=== PATIENT | female | born 1985 | race Caucasian/White ===

== ENCOUNTER 2019-04-01 15:42 | Outpatient (CLI) | payer OTHER, SELFPAY ==
[2019-04-01 16:51] LABS: Alanine Aminotransferase 14 U/L (4-35); Aspartate Amino Transferase 25 U/L (14-36)
== END 2019-04-01 15:43 | disposition home or self-care (01) ==
LOC: ANHLAB 15:48
PROVIDERS: PCP Internal Medicine; Visit Provider Podiatrist Foot & Ankle Surgery
DX: B35.1 Tinea unguium (principal)
CPT/HCPCS: 36415; 84450; 84460

== ENCOUNTER 2019-07-03 07:22 | Outpatient (CLI) | payer OTHER, SELFPAY ==
[2019-07-03 07:55] LABS: Alanine Aminotransferase 13 U/L (4-35); Aspartate Amino Transferase 28 U/L (14-36)
== END 2019-07-03 07:23 | disposition home or self-care (01) ==
PROVIDERS: PCP Internal Medicine; Visit Provider Podiatrist Foot & Ankle Surgery
DX: B35.1 Tinea unguium (principal)
CPT/HCPCS: 36415; 84450; 84460

== ENCOUNTER 2019-10-23 16:03 | Outpatient (CLI) | payer OTHER, SELFPAY ==
[2019-10-23 16:44] LABS: Alanine Aminotransferase 12 U/L (4-35); Aspartate Amino Transferase 25 U/L (14-36)
== END 2019-10-23 16:04 | disposition home or self-care (01) ==
LOC: ANHLAB 16:04
PROVIDERS: Visit Provider Podiatrist Foot & Ankle Surgery
DX: B35.1 Tinea unguium (principal)
CPT/HCPCS: 36415; 84450; 84460

== ENCOUNTER 2020-02-10 16:56 | Outpatient (CLI) | payer OTHER, SELFPAY ==
[2020-02-10 17:52] LABS: Alanine Aminotransferase 12 U/L (4-35); Aspartate Amino Transferase 25 U/L (14-36)
== END 2020-02-10 16:57 | disposition home or self-care (01) ==
LOC: ANHLAB 16:57
PROVIDERS: PCP Physician Assistant; Visit Provider Podiatrist Foot & Ankle Surgery
DX: B35.1 Tinea unguium (principal)
CPT/HCPCS: 36415; 84450; 84460

== ENCOUNTER 2020-02-23 03:56 | Outpatient (CLI) | payer OTHER, SELFPAY ==
[2020-02-23 16:31] LABS: SARS-CoV-2 RNA PCR Negative
== END 2020-02-23 03:57 | disposition home or self-care (01) ==
LOC: ANHCOVIDDT 03:56
PROVIDERS: PCP Physician Assistant; Visit Provider Obstetrics & Gynecology
DX: Z01.812 Encounter for preprocedural laboratory examination (principal); Z20.822 Contact with and (suspected) exposure to COVID-19
CPT/HCPCS: C9803; U0003; U0005

== ENCOUNTER 2020-02-24 13:59 | Outpatient (CLI) | payer OTHER, SELFPAY ==
[2020-02-24 15:02] LABS: Hematocrit 33.4 % (37.0-47.0); Hemoglobin 10.8 g/dL (12.0-15.0)
== END 2020-02-24 14:00 | disposition home or self-care (01) ==
PROVIDERS: PCP Physician Assistant; Visit Provider Anesthesiology
DX: Z01.818 Encounter for other preprocedural examination (principal)
CPT/HCPCS: 36415; 85014; 85018

== ENCOUNTER 2020-02-26 10:12 | Day surgery (SDC) | payer OTHER, SELFPAY ==
[2020-02-20 09:37] VITALS: BMI 28.6
--- NOTE | 2020-02-25 23:11 | PM.IMHP ---
H&P: HPI History of Present Illness Date/Time: 02/25/20 23:11 Chief Complaint: Bleeding Narrative: 34 y/o who continues to have irregular bleeding. She had months of nearly daily bleeding with Mirena. We removed the Mirena and her bleeding improved with Nuvaring, but she had a hard time keeping the ring in place. We placed a Nexplanon on 01/08/20, but she has had nearly daily bleeding with this as well. Ultrasound exam demonstrates an anteverted uterus with an endometrial complex measuring 5.5mm thick. Follicular change is noted in the adnexa. 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 One vaginal delivery of twin boys weighing 7#5oz and 6#14oz. Meds Home Medications and Allergies Home Medications Medication Instructions Recorded Confirmed Type montelukast 10 mg tablet 10 mg PO DAILY #90 tablet 08/12/19 02/20/20 Rx etonogestrel [Nexplanon] 1 implant SUBDERMAL ONCE 02/20/20 02/20/20 History Allergies Allergy/AdvReac Type Severity Reaction Status Date / Time No Known Allergies Allergy Verified 02/20/20 09:27 Exam Const: Orientation/consciousness: patient oriented x3 Other: Well-developed, well-nourished female in no acute distress. Neck: Thyroid: thyroid normal Lymphatic: no lymphadenopathy noted (in neck, axilla or inguinal nodes) Resp: Effort & Inspection: normal respiratory effort Auscultation: clear to auscultation bilaterally Cardio: Rate: regular rate Rhythm: regular rhythm Heart sounds: S1 normal heart sound present and S2 normal heart sound present GI: Other: ABD: Soft, nontender, nondistended. No guarding or rebound tenderness. No hepatosplenomegaly. : General: Yes no CVA tenderness Other: External genitalia: normal female hair distribution, without lesion. Urethral meatus: no lesion, non prolapsed. Bladder: no mass, nontender Vagina: well-estrogenized, without lesion or discharge. No cystocele or rectocele. Cervix: no lesion or discharge. Uterus: small, anteverted, freely mobile, nontender Adnexa: no mass or tenderness. Anus/perineum: no lesions, nontender Back/Spine/Pelvis: Back: no CVA tenderness Skin: General skin exam: normal color and no rashes or lesions noted Other: The Nexplanon giuseppe is easily palpated in the expected location in the skin of the left arm. Neuro: General: patient oriented x3 Extrem: Other: Extremities: nontender with no edema Psych: Mental Status: mental status grossly normal Affect: normal affect Assessment and Plan Assessment and plan (1) Menometrorrhagia: Code(s): N92.1 - Excessive and frequent menstruation with irregular cycle Status: Acute Assessment and Plan: I have offered her continued observation vs. medical treatment vs. surgical management. She prefers the latter. Specifically, I have offered her a hysteroscopy with dilation and sharp curettage. She understands risks of surgery to include risks of anesthesia, risks of pain, infection, bleeding, blood products, thromboembolic phenomena and damage to adjacent structures such as bowel, bladder, ureters, blood vessels and nerves. She understands all these risks and elects to proceed with surgery.
[2020-02-26 10:40] VITALS: BP 115/77; PULSE 81; RESP 16; TEMP 37; O2SAT 98; BMI 31.1
[2020-02-26] MEDS: ACETAMINOPHEN 500 MG TABLET 1000 MG PO (10:55)
--- NOTE | 2020-02-26 11:53 | WPDANESEPPF ---
Anes - Initial Pre Proc Eval Procedure: Operation Date: 02/26/20 12:00 Proposed Procedures p Hysteroscopy Dilation and Curettage - Cory Riley MD Date/Time: 02/26/20 11:53 Surgeon: Cory Riley MD Pre Op Diagnosis: IRREGULAR BLEEDING Patient Data Age: 34 Gender: F Height: 5 ft 9 in Weight: 95.5 kg Last Vital Signs Temp 37.0 C 02/26/20 10:40 Pulse 81 02/26/20 10:40 Resp 16 02/26/20 10:40 BP 115/77 02/26/20 10:40 Pulse Ox 98 02/26/20 10:40 Allergies Allergy/AdvReac Type Severity Reaction Status Date / Time No Known Allergies Allergy Verified 02/26/20 10:45 Home Medications Medication Instructions Recorded Confirmed Type montelukast 10 mg tablet 10 mg PO DAILY #90 tablet 08/12/19 02/26/20 Rx etonogestrel [Nexplanon] 1 implant SUBDERMAL ONCE 02/20/20 02/26/20 History Patient hx anesthesia problems: other (history of restless/combative emergence) Family hx anesthesia problems: none [facility] Past Medical History Medical History (Updated 02/26/20 @ 11:54 by Pj Senior MD) Overweight Surgical History Surgical History (Updated 02/26/20 @ 11:54 by Pj Senior MD) H/O arthroscopic knee surgery History of ankle surgery Family History Family History Mother Hypertension Father Patient's father is in good health Sibling Patient's sister is in good health Patient's brother is in good health Social History Social History Smoking status: Never smoker Second hand tobacco smoke exposure: No Alcohol intake: never Substance use: never Substance use type: does not use Living arrangements: with family Gender identity (if verbalized by the patient): Female Spiritual care concerns: No Anes - Eval Final PreProcedure Day of Procedure 02/26/20 11:53 Patient weight: overweight Heart: regular rate and rhythm Lungs: clear to auscultation Airway: Mallampati scale class 1 Neurological: alert and oriented Last oral intake: >/= 8 hours ASA classification: II Emergent: no Anesthetic plan: proceed Anesthesia type and monitoring: general LMA and standard monitoring Other findings: labs reviewd today including recent H&H and liver enzymes Informed Consent: The patient's anesthetic plan of GA with LMA and its attendant risks and benefits were discussed with the patient. Questions were solicited and answers provided to the satisfaction of the patient.She agrees to proceed.
[2020-02-26] MEDS: LACTATED RINGERS 1,000 ML 30 ML IV CONT ×2 (11:59→13:00)
--- NOTE | 2020-02-26 12:04 | WPDHPUPDATE1 ---
History and Physical Update Update Date/Time: 02/26/20 12:04 History and Physical has been reviewed, including an updated exam of the patient. There are NO changes in the patient's condition. Risks, benefits, and alternatives have been discussed and questions answered. Patient agrees to proceed with procedure.
[2020-02-26 12:44] VITALS: BP 116/71; PULSE 82; RESP 14; TEMP 36.3; O2SAT 98
--- NOTE | 2020-02-26 12:44 | PM.PROC ---
Procedure Note - Detailed Date of procedure: 02/26/20 Pre-op diagnosis: IRREGULAR BLEEDING Menometrorrhagia Post-op diagnosis: same Procedure performed: Hysteroscopy Dilation and sharp curettage Description of procedure: The patient was taken to the operating room where she was prepared and draped in the usual sterile fashion in the dorsal lithotomy position. The bladder was drained with a red rubber catheter. A sterile speculum was placed into the vagina. The anterior lip of the cervix was grasped with single-tooth tenaculum. Ten mL of 1% lidocaine was administered in a paracervical block. The cervix was then gently dilated using Hegar dilators until an 8 mm dilator could be passed. Hysteroscopy was performed using sterile saline as a distention medium. Findings are as noted above. Sharp curettage was then performed, and endometrial curettings were collected on a Telfa pad and passed off to be sent to pathology. Hemostasis was excellent. Sponge, lap, needle and instrument counts were correct. The patient was awakened and taken to the recovery room in stable condition. I was present and scrubbed through the entire procedure. Implants: None Anesthesia: GLMA and local (1% lidocaine paracervical block) Surgeon: Cory Riley MD Estimated blood loss (mL): 10 Drains: No Packing: No Pathology: yes (endometrial curettings) Complications: None Condition: stable Disposition: PACU Findings: Unremarkable endometrial cavity. Both tubal ostia seen.
[2020-02-26 12:55] VITALS: BP 115/69; PULSE 82; RESP 16; O2SAT 100
[2020-02-26 13:10] VITALS: BP 108/82; PULSE 60; RESP 16; O2SAT 100
[2020-02-26 13:20] VITALS: BP 111/87; PULSE 69; RESP 16; O2SAT 100
--- NOTE | 2020-02-26 13:26 | WPDANESPN ---
Anes - Prog Note Post-Op Date/Time: 02/26/20 13:26 Cardiovascular status: normal Airway patency: baseline Post-Op hydration status: normal Vital Signs: Last Vital Signs Temp 36.3 C L 02/26/20 12:44 Pulse 60 02/26/20 13:10 Resp 16 02/26/20 13:10 BP 108/82 02/26/20 13:10 Pulse Ox 100 02/26/20 13:10 Pain Score (VAS): 0/10 Post-procedural complaints: none Patient Feedback: Patient satisfied with anesthetic care. She denies any pain or nausea. VVS. Tolerating PO. Stable for discharge from facility.
[2020-02-26 13:48] VITALS: BP 109/70; PULSE 73; RESP 16; O2SAT 100
== END 2020-02-26 13:55 | disposition home or self-care (01) ==
PROVIDERS: PCP Physician Assistant; Visit Provider Obstetrics & Gynecology
PROC: 0U5B8ZZ Destruction of Endometrium, Via Natural or Artificial Opening Endoscopic (ICD-10-PCS; CPT 58563; principal; 2020-02-26 12:00)
DX: N93.8 Other specified abnormal uterine and vaginal bleeding (principal)
CPT/HCPCS: 58558

== ENCOUNTER 2020-02-26 10:12 | Outpatient (NON) | payer OTHER, SELFPAY | END 2020-02-26 10:13 | LOC: ANHLAB 02-27 08:51 | PROVIDERS: PCP Physician Assistant; Visit Provider Obstetrics & Gynecology | DX: N93.9 Abnormal uterine and vaginal bleeding, unspecified (principal) | CPT/HCPCS: 88305 ==

== ENCOUNTER 2020-08-31 15:27 | Outpatient (CLI) | payer OTHER, SELFPAY ==
--- NOTE | ~2020-08-31 | XR_ITS ---
XR finger 1st RT min 2V 08/31/2020 15:53 INDICATION: Right first finger pain and swelling PROCEDURE: 3 views right first finger COMPARISON: No prior studies for comparison. FINDINGS: Fracture, dislocation or subluxation is not identified. 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 The soft tissues appear within normal limits. No foreign bodies are identified. IMPRESSION: 1: NO ACUTE BONE OR JOINT ABNORMALITY IDENTIFIED. Reviewed, dictated and finalized at location A.
[2020-08-31 16:19] LABS: Uric Acid 3.7 mg/dL (2.5-7.5)
[2020-08-31 16:40] LABS: Erythrocyte Sedimentation Rate 25 mm/hr (0-20)
== END 2020-08-31 15:28 | disposition home or self-care (01) ==
LOC: ANHLAB 15:28
PROVIDERS: PCP Physician Assistant; Visit Provider Physician Assistant
DX: M79.644 Pain in right finger(s) (principal); M18.11 Unilateral primary osteoarthritis of first carpometacarpal joint, right hand
CPT/HCPCS: 36415; 73140; 84550; 85652

== ENCOUNTER 2020-09-09 09:57 | Outpatient (CLI) | payer OTHER, SELFPAY ==
[2020-09-09 10:33] LABS: Alanine Aminotransferase 15 U/L (4-35); Aspartate Amino Transferase 19 U/L (14-36)
== END 2020-09-09 09:58 | disposition home or self-care (01) ==
LOC: ANHLAB 09:59
PROVIDERS: PCP Physician Assistant; Visit Provider Podiatrist Foot & Ankle Surgery
DX: B35.1 Tinea unguium (principal)
CPT/HCPCS: 36415; 84450; 84460

== ENCOUNTER 2020-11-11 10:57 | Outpatient (RCR) | payer OTHER, SELFPAY ==
[2020-11-11] MEDS: ACETAMINOPHEN 325 MG TABLET 650 MG PO (11:04)
[2020-11-11] MEDS: FAMOTIDINE 20 MG TABLET PO (11:05)
[2020-11-11] MEDS: diphenhydrAMINE HCl CAP 25 MG CAPSULE PO (11:05)
[2020-11-11 11:17] VITALS: BP 126/82; PULSE 85; RESP 20; TEMP 36.8; O2SAT 99
[2020-11-11 12:34] VITALS: BP 115/72
== END 2020-11-11 16:30 | disposition home or self-care (01) ==
LOC: AMCINF 10:57
PROVIDERS: Visit Provider Internal Medicine Hematology & Oncology
DX: Z23 Encounter for immunization (principal); U07.1 COVID-19
CPT/HCPCS: A9270; J7050; M0243

== ENCOUNTER 2021-01-22 12:02 | Outpatient (CLI) | payer BC, SELFPAY ==
[2021-01-22 12:40] LABS: Hematocrit 35.9 % (37.0-47.0); Hemoglobin 11.7 g/dL (12.0-15.0); Mean Corpuscular HGB Conc 32.6 g/dl (32-36); Mean Corpuscular Hemoglobin 28.7 pg (26-34); Mean Corpuscular Volume 88.2 fl (80-100); Mean Platelet Volume 10.6 fl (7.4-10.4); Platelet Count Result 191 k/mm3 (150-375); Red Blood Count 4.07 M/mm3 (4.2-5.4); Red Cell Distribution Width 12.6 % (11.5-14.5); White Blood Count 5.6 K/mm3 (4.5-10.0)
[2021-01-22 12:46] LABS: Alanine Aminotransferase 18 U/L (4-35); Albumin Level 4.5 g/dL (3.5-5.1); Alkaline Phosphatase 53 U/L (38-126); Anion Gap 7 mmol/L (8-16); Aspartate Amino Transferase 28 U/L (14-36); Bilirubin,Total 0.3 mg/dL (0.2-1.3); Blood Urea Nitrogen 13 mg/dL (7-17); Carbon Dioxide 26 mmol/L (22-30); Chloride 103 mmol/L (98-107); Cholesterol 169 mg/dL (0-200); Estimated Glomerular Filt Rate > 60; Glucose 92 mg/dL (65-110); HDL Direct 71 mg/dL; Potassium 4.1 mmol/L (3.4-5.0); Sodium 136 mmol/L (137-145); Triglycerides 52 mg/dL (<150)
[2021-01-22 12:57] LABS: LDL Cholesterol Direct 79 mg/dL
== END 2021-01-22 12:03 | disposition home or self-care (01) ==
PROVIDERS: PCP Internal Medicine; Referring Provider Podiatrist Foot & Ankle Surgery; Visit Provider Physician Assistant
DX: Z00.00 Encounter for general adult medical examination without abnormal findings (principal); B35.1 Tinea unguium
CPT/HCPCS: 36415; 80053; 80061; 82607; 82746; 84443; 85027

== ENCOUNTER 2021-04-27 16:44 | Outpatient (CLI) | payer BC, SELFPAY ==
[2021-04-27 17:36] LABS: Alanine Aminotransferase 15 U/L (4-35); Aspartate Amino Transferase 28 U/L (14-36)
== END 2021-04-27 16:45 | disposition home or self-care (01) ==
LOC: ANHLAB 16:47
PROVIDERS: PCP Internal Medicine; Visit Provider Podiatrist Foot & Ankle Surgery
DX: B35.1 Tinea unguium (principal)
CPT/HCPCS: 36415; 84450; 84460

== ENCOUNTER 2021-09-20 16:38 | Outpatient (CLI) | payer BC, SELFPAY ==
[2021-09-20 16:58] LABS: Basophils Percent Auto 0.2 % (0.2-1.2); Eosinophils Absolute Auto 0.1 K/mm3 (0-0.3); Eosinophils Percent Auto 1.3 % (0-4.4); Hematocrit 29.5 % (37.0-47.0); Immature Granulocyte Absolute 0.01 K/mm3 (0.00-0.031); Immature Granulocyte Percent A 0.2 % (0-0.5); Lymphocytes Absolute Auto 1.25 K/mm3 (0.9-3.2); Lymphocytes Percent Auto 27.9 % (18.3-44.2); Mean Corpuscular HGB Conc 30.5 g/dl (32-36); Mean Corpuscular Hemoglobin 24.1 pg (26-34); Mean Corpuscular Volume 78.9 fl (80-100); Mean Platelet Volume 9.9 fl (7.4-10.4); Monocytes Absolute Auto 0.4 K/mm3 (0.1-0.6); Monocytes Percent Auto 9.2 % (2.6-8.5); Neutrophils Absolute Auto 2.7 K/mm3 (1.3-6.7); Neutrophils Percent Auto 61.2 % (45.5-73.1); Platelet Count Result 230 k/mm3 (150-375); Red Blood Count 3.74 M/mm3 (4.2-5.4); White Blood Count 4.5 K/mm3 (4.5-10.0)
== END 2021-09-20 16:39 | disposition home or self-care (01) ==
LOC: ANHLAB 16:41
PROVIDERS: PCP Family Medicine; Visit Provider Obstetrics & Gynecology
DX: R55 Syncope and collapse (principal); N92.0 Excessive and frequent menstruation with regular cycle
CPT/HCPCS: 36415; 85025

== ENCOUNTER 2021-11-22 17:19 | Outpatient (CLI) | payer BC, SELFPAY ==
[2021-11-22 17:36] LABS: Hematocrit 35.9 % (37.0-47.0); Hemoglobin 11.5 g/dL (12.0-15.0)
== END 2021-11-22 17:20 | disposition home or self-care (01) ==
LOC: ANHLAB 17:21
PROVIDERS: PCP Family Medicine; Visit Provider Obstetrics & Gynecology
DX: N92.0 Excessive and frequent menstruation with regular cycle (principal)
CPT/HCPCS: 36415; 85014; 85018

== ENCOUNTER 2023-04-25 03:07 | Day surgery (SDC) | payer BC, SELFPAY ==
[2023-04-19 10:18] VITALS: BMI 26.6
--- NOTE | 2023-04-19 10:24 | PC.NURSE ---
Report to the Outpatient Waiting Room, entrance under the green pavilion located off [facility], at time 1000__ on date _04/25/23_. Planned Procedure Time: _1200__. Time changes happen often and if your time is changed the preop area will call you the afternoon before. - You and your visitor will be asked to self-screen and do not enter if you have any COVID symptoms. - A mask is optional within the hospital at this time. Patients may have clear liquids (water, carbonated beverages, clear teas, apple juice) until 3 hours prior to surgery with a maximum of 20 ounces. - No food from midnight until time of surgery - Infants may have breast milk until 4 hours before surgery, formula 6 hours prior to surgery. - Children will be allowed to drink immediately following surgery. If applicable, please bring a bottle or sippy cup to assist with drinking. Juice, water, soda, and popsicles are readily available. For infants on formula, please bring formula the day of surgery. Pacifiers are allowed. Take the following medications with a SIP of water the morning of surgery: NONE DO NOT STOP ANY OF YOUR OTHER PRESCRIPTION MEDICATIONS PRIOR TO SURGERY ?EXCEPT THE FOLLOWING Medications to discontinue per physician NONE Date to take last dose Please no make-up, nail kinyarwanda, hairspray, perfume, deodorant, or body powder the day of surgery. No jewelry (including any body piercings) or valuables the day of surgery, leave them at home. Please take a shower or bath the night before, or the morning of, surgery with an antibacterial soap. Wear comfortable, loose fitting clothing. Children are encouraged to wear pajamas. - Jewelry must be removed prior to entering the operating room. Rings and piercings that are not removed may be cut off. - The hospital will not accept responsibility for valuables. - Please leave all valuables, including medications, at home the day of surgery. If you are going home after surgery, a licensed carrier driver must drive you home. - NO public transportation without another adult if you receive anesthesia. - We recommend that an adult stay with you for 24 hours following discharge. - We also recommend that you do not drive, make important decision, drink alcoholic beverages, or take any drugs that were not prescribed by your health care provider for at least 24 hours after your discharge time. For Pediatric surgeries, we recommend two adults accompany the child home. Follow any additional instructions given to you from your surgeon. If you or anyone in your household have experienced Covid symptoms in the past week, please notify your surgeon or the nurse liaison at the phone number below for possible testing. Telephone instructions given to __PATIENT _and asked if any additional questions and then verbalized understanding. Patient advised to call surgeon office or pre surgery nurse liaison [phone] if any additional questions.
[2023-04-25] VITALS (8 sets, daily range): BP systolic 114–120; BP diastolic 61–82; PULSE 56–80; RESP 12–20; TEMP 36.1–36.3; O2SAT 100
[2023-04-25] MEDS: ACETAMINOPHEN 500 MG TABLET 1000 MG PO (10:15)
[2023-04-25] MEDS: LACTATED RINGERS 1,000 ML 30 ML IV CONT ×2 (10:35→13:05)
[2023-04-25] MEDS: KETOROLAC 15 MG/ML VIAL (*BKC) IV PUSH (10:40)
[2023-04-25] MEDS: SCOPOLAMINE 1 MG PATCH 1 PATCH TRANSDERM (10:49)
--- NOTE | 2023-04-25 10:56 | P.PNAN_ITS ---
Anes - Initial Pre Proc Eval Procedure: Operation Date: 04/25/23 12:00 Proposed Procedures p Laparoscopic Bilateral Tubal Ligation with Fallopian Rings, Removal of Nexplanon Implant - Cory Riley MD Date/Time: 04/25/23 10:56 Surgeon: Cory Riley MD Pre Op Diagnosis: Desire Sterilization Patient Data Age: 38 Gender: F Height: 1.75 m Weight: 82 kg Allergies Allergy/AdvReac Type Severity Reaction Status Date / Time No Known Allergies Allergy Verified 06/13/21 14:57 Home Medications Medication Instructions Recorded Confirmed Type liraglutide (weight loss) 3 mg/0.5 9.5 mg subcut DAILY 04/19/23 04/25/23 History mL (18 mg/3 mL) subcut pen injector (Saxenda) Patient hx anesthesia problems: none Family hx anesthesia problems: none Results Review: All pre-operative results and documents have been reviewed as part of the pre- operative evaluation. PMFSH Past Medical History Medical History Overweight Surgical History Surgical History H/O arthroscopic knee surgery History of ankle surgery Family History Family History Mother Hypertension Father Patient's father is in good health Sibling Patient's sister is in good health Patient's brother is in good health Social History Social History Smoking status: Never smoker Second hand tobacco smoke exposure: No Alcohol intake: former Substance use: never Substance use type: does not use Living arrangements: with family Gender identity (if verbalized by the patient): Female Spiritual care concerns: No Anes - Eval Final PreProcedure Day of Procedure 04/25/23 10:56 Patient weight: overweight Heart: regular rate and rhythm Lungs: clear to auscultation Airway: Mallampati scale class II Neurological: alert and oriented Last oral intake: >/= 8 hours ASA classification: II Emergent: no Anesthetic plan: proceed Anesthesia type and monitoring: general ETT and standard monitoring Results Review: All pre-operative results and documents have been reviewed as part of the pre- operative evaluation. Informed Consent: The patient's anesthetic plan and its attendant risks and benefits were discussed with the patient/family/POA. Questions were solicited and answers provided to the satisfaction of the patient/family/POA.
--- NOTE | 2023-04-25 11:54 | PM.IMHP ---
H&P: HPI History of Present Illness Date/Time: 04/25/23 11:54 Chief Complaint: Here for tubal ligation Narrative: 38 y/o who has had an endometrial ablation. She has a Nexplanon in place, but has irregular bleeding. She would like to have the Nexplanon removed and have permanent contraception with laparoscopic bilateral tubal ligation. Review of Systems Review of Systems: All systems reviewed & are unremarkable except as noted in HPI and below PMFSH Past Medical History Medical History (Updated 04/25/23 @ 11:57 by Cory Riley MD) Overweight Surgical History Surgical History H/O arthroscopic knee surgery History of ankle surgery History of endometrial ablation Family History Family History Mother Hypertension Father Patient's father is in good health Sibling Patient's sister is in good health Patient's brother is in good health Social History Social History Smoking status: Never smoker Second hand tobacco smoke exposure: No Alcohol intake: former Substance use: never Substance use type: does not use Living arrangements: with family Gender identity (if verbalized by the patient): Female Spiritual care concerns: No Meds Home Medications and Allergies Home Medications Medication Instructions Recorded Confirmed Type liraglutide (weight loss) 3 mg/0.5 9.5 mg subcut DAILY 04/19/23 04/25/23 History mL (18 mg/3 mL) subcut pen injector (Saxenda) Allergies Allergy/AdvReac Type Severity Reaction Status Date / Time No Known Allergies Allergy Verified 06/13/21 14:57 Vital Signs Vital Signs - 24 hr 04/25/23 10:10 Temperature 36.3 C L Pulse Rate 60 Respiratory Rate 20 Blood Pressure 117/61 Pulse Oximetry 100 Oxygen Delivery Room Air Exam Const: Orientation/consciousness: patient oriented x3 Other: Well-developed, well-nourished female in no acute distress. Neck: Thyroid: thyroid normal Lymphatic: no lymphadenopathy noted (in neck, axilla or inguinal nodes) Resp: Effort & Inspection: normal respiratory effort Auscultation: clear to auscultation bilaterally Cardio: Rate: regular rate Rhythm: regular rhythm Heart sounds: S1 normal heart sound present and S2 normal heart sound present GI: Other: ABD: Soft, nontender, nondistended. No guarding or rebound tenderness. No hepatosplenomegaly. : General: Yes no CVA tenderness Other: External genitalia: normal female hair distribution, without lesion. Urethral meatus: no lesion, non prolapsed. Bladder: no mass, nontender Vagina: well-estrogenized, without lesion or discharge. No cystocele or rectocele. Cervix: no lesion or discharge. Uterus: small, anteverted, freely mobile, nontender Adnexa: no mass or tenderness. Anus/perineum: no lesions, nontender Back/Spine/Pelvis: Back: no CVA tenderness Skin: General skin exam: normal color and no rashes or lesions noted Neuro: General: patient oriented x3 Extrem: Other: Extremities: nontender with no edema Psych: Mental Status: mental status grossly normal Affect: normal affect Assessment and Plan Assessment and plan (1) Unwanted fertility: Code(s): Z30.09 - Encounter for other general counseling and advice on contraception Status: Acute Assessment and Plan: A: Desired sterility. P: She understands there are temporary methods of contraception available to her. She understands that there are nonsurgical options as well as surgical options. She understands that tubal ligation will render her permanently sterile. She understands that there is a failure rate associated with tubal ligation, as well as an inherent ectopic gestation risk. Furthermore, she understands risks of surgery to include risks of anesthesia, risks of pain, infect
--- NOTE | 2023-04-25 12:09 | WPDHPUPDATE1 ---
History and Physical Update Update Date/Time: 04/25/23 12:09 History and Physical has been reviewed, including an updated exam of the patient. There are NO changes in the patient's condition. Risks, benefits, and alternatives have been discussed and questions answered. Patient agrees to proceed with procedure.
[2023-04-25] MEDS: LIDOCAINE HCL 1% LOCAL INJ 20 ML VIAL 10 ML INFILTRATE (12:18)
--- NOTE | 2023-04-25 13:05 | P.OP_ITS ---
Procedure Note - Detailed Date of Procedure 04/25/23 Pre-op Diagnosis Desired Sterilization Post-op Diagnosis Same Procedure Performed Laparoscopic bilateral tubal ligation with Falope rings Removal of Nexplanon giuseppe Surgeon Cory Riley MD Anesthesia General and Local (1% lidocaine) Findings Liver and gallbladder unremarkable. Vermiform appendix surgically absent. Uterus, anterior and posterior cul de sac, bilateral Fallopian tubes / ovaries, bilateral round ligaments all unremarkable. The Nexplanon giuseppe was easily palpated in the expected location in the left arm. Description of Procedure The patient was taken to the operating room where general endotracheal anesthesia was administered. She was prepared and draped in the usual sterile fashion in dorsal lithotomy position. The bladder was drained with a red rubber catheter. A sterile speculum was placed into the vagina. The anterior lip of the cervix was grasped with a single-tooth tenaculum. The acorn uterine manipulator was placed. The speculum was withdrawn. Gloves were changed and attention was turned the abdomen. An infraumbilical skin incision was made with a scalpel. The abdomen was tented and a 5mm bladeless trocar was advanced under direct laparoscopic visualization. Pneumoperitoneum was administered using carbon dioxide gas. A survey of the pelvis and abdomen revealed the findings noted above. A second skin incision was made in the midline above the symphysis pubis and an 8mm bladeless trocar was advanced under direct laparoscopic visualization. The fallopian tube on the right side was followed out to the fimbriated end for identification. It was then grasped in the midportion with the Falope ring applicator. The Falope ring was tented applied. A good loop of tube was noted to be distal to the ring. Hemostasis was excellent. The device was reloaded and the contralateral tube was similarly identified and ligated. An excellent application was noted here as well. A total of 3mL of 1% lidocaine was infiltrated into the serosa of the proximal tubes for postoperative anesthesia. The ports were withdrawn. The gas was allowed to escape. The skin incisions were reapproximated using interrupted subcuticular sutures of 4 0 Vicryl. Dermaflex was applied externally. Attention was directed to the left arm, which was prepped and draped. The skin was infiltrated with 1 mL 1% lidocaine and a stab incision made with a #11 scalpel. A curved hemostat was used to grasp the Nexplanon giuseppe. It was easily removed, intact, and discarded. Steri strips and a pressure dressing were applied. The vaginal instrumentation was withdrawn and hemostasis was excellent here as well. Sponge, lap, needle and instrument counts were correct. The patient was awakened and taken to recovery room in stable condition. I was present and scrubbed through the ent lin procedure. Implants Falope rings x 2 Estimated Blood Loss 5 Drains No Packing No Pathology None sent Complications None Condition Stable Disposition PACU
[2023-04-25] MEDS: fentaNYL CITRATE INJ (*CRX) 100 MCG/2 ML VIAL 25 MCG IV PUSH ×2 (13:33→13:36)
[2023-04-25] MEDS: oxyCODONE HCL (*CRX) 5 MG TAB IR PO (14:06)
== END 2023-04-25 14:40 | disposition home or self-care (01) ==
PROVIDERS: Visit Provider Obstetrics & Gynecology
PROC: (CPT 58671; principal; 2023-04-25 12:00)
DX: Z30.2 Encounter for sterilization (principal); Z30.46 Encounter for surveillance of implantable subdermal contraceptive
CPT/HCPCS: 11982; 58671; A4264; A9270; J1100; J1885; J2250; J2405; J2704; J3010; J7120

== ENCOUNTER 2023-09-11 16:10 | Outpatient (CLI) | payer BC, SELFPAY ==
--- NOTE | ~2023-09-11 | MM_ITS ---
EXAMINATION: MM screening vanessa BI w brice HISTORY: Screening TECHNIQUE: Craniocaudal and mediolateral oblique 3-D tomosynthesis images were obtained and synthetic 2-D images were generated. CAD analysis was submitted and interpreted. COMPARISON: No prior mammogram is available for comparison at this institution. BREAST PARENCHYMAL COMPOSITION: The breasts are heterogeneously dense, which may obscure small masses . FINDINGS: There is no evidence of suspicious mass, calcification, or architectural distortion to sugg est malignancy in either breast. There has been no suspicious interval change. IMPRESSION: 1. No mammographic evidence of malignancy. 2. Recommend routine screening mammography in one year. BI-RADS Category 1: Negative Reviewed, dictated and finalized at location B.
== END 2023-09-11 16:11 ==
PROVIDERS: PCP Obstetrics & Gynecology; Visit Provider Obstetrics & Gynecology
DX: Z12.31 Encounter for screening mammogram for malignant neoplasm of breast (principal)
CPT/HCPCS: 77063; 77067

== ENCOUNTER 2024-10-09 11:46 | Outpatient (CLI) | payer OTHER, SELFPAY ==
--- NOTE | ~2024-10-09 | MM_ITS ---
EXAMINATION: MM screening vanessa BI w brice HISTORY: Screening TECHNIQUE: Craniocaudal and mediolateral oblique 3-D tomosynthesis images were obtained and synthetic 2-D images were generated. CAD analysis was submitted and interpreted. COMPARISON: Mammogram 09/11/2023 BREAST PARENCHYMAL COMPOSITION: The breasts are extremely dense, which lowers the sensitivity of mammography. FINDINGS: There is no evidence of suspicious mass, calcification, or architectural distortion to suggest malignancy in either breast. Focal asymmetry in the central left breast posterior depth. IMPRESSION: 1. Focal asymmetry in the central left breast. The study is incomplete. A diagnostic left breast mammogram and a diagnostic left breast ultrasound is recommended. 2. No mammographic evidence for malignancy in the right breast. BI-RADS Category 0: Incomplete-needs additional imaging evaluation Reviewed, dictated and finalized at location Q. IMPRESSION: 1. Focal asymmetry in the central left breast. The study is incomplete. A diagn ostic left breast mammogram and a diagnostic left breast ultrasound is recommen ded. 2. No mammographic evidence for malignancy in the right breast. BI-RADS Category 0: Incomplete-needs additional imaging evaluation
--- OUTSIDE RECORDS SUMMARY | 2024-10-09 12:20 | XMS_ITS | Encounter Summary ---
Author Organization [facility] Address [address] [place] [address] Care Team Providers Care Psychiatric Social Worker Name Role Phone Donald Louis MD Unavailable [phone] Encounter Details Date Type Department Care Team (Late st Contact Info) Description 09/28/2014 Therapy Visit [facility] [address] [place] [address] Document, Scanned Social History Tobacco Use Types Packs/Day Years Used Date Smoking Tobacco: Never Smokeless Tobacco: Never Alcohol Use Standard Drinks/Week Comments Yes 0 (1 standard drink = 0.6 oz pur e alcohol) Comments No Sex and Gender Information Value Date Recorded Sex Assigned at Not on file 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
--- OUTSIDE RECORDS SUMMARY | 2024-10-09 12:20 | XMS_ITS | Encounter Summary ---
Author Organization [facility] Health Address [address] [place] [address] Care Team Providers Care Engraver Pantograph Name Role Phone Donald Louis MD Unavailable [phone] Encounter Details Date Type Department Care Team (Late st Contact Info) Description 08/11/2014 Therapy Visit [facility] REHAB [address] [place] [address] Unknown, Provider Social History Tobacco Use Types Packs/Day Years Used Date Smoking Tobacco: Never Smokeless Tobacco: Never Alcohol Use Standard Drinks/Week Comments Yes 0 (1 standard drink = 0.6 oz pur e alcohol) Comments No Sex and Gender Information Value Date Recorded Sex Assigned at Not on file Legal Sex Female 8:52 AM SOCIAL DIRECTOR Gender Identity Not on file Sexual Orientation Not on file 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
--- OUTSIDE RECORDS SUMMARY | 2024-10-09 12:20 | XMS_ITS | Encounter Summary ---
Author Organization [facility] Address [address] [facility] [place] [address] Care Team Providers Care Oil Expeller Operator Name Role Phone Donald Louis MD Unavailable [phone] Encounter Details Date Type Department Care Team (Late st Contact Info) Description 07/17/2013 [facility] Outpatient Visit [facility] Orthopedics - Radiology [address] [place] [address] Timothy Trujillo, DO [address] [place] [id number] Social History Tobacco Use Types Packs/Day Years Used Date Smoking Tobacco: Never Smokeless Tobacco: Never Alcohol Use Standard Drinks/Week Comments Yes 0 (1 standard drink = 0.6 oz pur e alcohol) Comments No Sex and Gender Information Value Date Recorded Sex Assigned at Not on file Legal Sex Female 8:52 AM RN DISCHARGE Gender Identity Not on file Sexual Orientation Not on file 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
--- OUTSIDE RECORDS SUMMARY | 2024-10-09 12:20 | XMS_ITS | Clinical Summary ---
Author Organization [facility] Address [address] [place] [address] Care Team Providers Care Snowsport Instructor Name Role Phone Donald Louis MD Unavailable [phone] Source Comments [facility],non-owned Affiliates and Associated Physician Practices is amultiple site organization consisting of ambulatory clinics and hospital sitesin [place], [place], [place] and [place]. This disclosure is being madepursuant to the Care Everywhere program and may not contain all information available regarding this patient. Last updated 17.[facility] Allergies No known active allergies Medications * Be aware that medications may not be up to date on this document. Alwaysverify current medications with the patient. cyclobenzaprine (FLEXERIL) 10 MG tablet Take 1 Tab by mouth 3 times daily as needed. 30 Tab 1 3 Active Additional Information Patient not taking.Reported on 01/21/2015 lidocaine (LIDODERM) 5 % patch Apply 1 Patch to skin once daily. Active oxyCODONE-aceta minophen (PERCOCET) 5-325 MG tablet Take 1 Tab by mouth every 8 hours as needed for Pain. 40 Tab 0 4 Active Additional Information Patient not taking.Reported on 11/19/2014 hydrocodone-pamela taminophen (NORCO) 7.5-325 MG tablet Take 1 Tab by mouth every 6 hours as needed for Pain. This is a 30 day supply 90 Tab 0 05/30/201 4 Active Additional Information Patient not taking.Reported on 11/19/2014 methylPREDNISol one (MEDROL DOSEPAK) 4 MG tablet Take by mouth as directed. 21 Packet 0 5 Active Additional Information Patient not taking.Reported on 11/19/2014 methylPREDNISol one (MEDROL DOSEPAK) 4 MG tablet Take by mouth as directed. 21 Packet 0 5 Active Additional Information Patient not taking.Reported on 11/19/2014 predniSONE (DELTASONE) 20 MG tablet Take 3 tabs/3 days, then 2 tabs/3days, then 1 tab/3 days, then 1/2 tab/3 days, then stop 21 Tab 0 5 Active Additional Information Patient not taking.Reported on 11/19/2014 MV-Min-Fe Fum-FA-DHA (PNV-OB/DHA) 65-1 & 250 MG MISC Take 1 Each by mouth once daily Please dispense free vitamin with DHA 30 Each 11 5 Active amoxicillin (AMOXIL) 500 MG capsule Take 1 Cap by mouth 3 times daily 21 Cap 0 5 Active Additional Information Patient not taking.Reported on 01/21/2015 Active Problems Problem Noted Date Diagnosed Date Supervision of other normal , antepartu m 02/19/2015 Tibialis posterior tendonitis 07/11/2013 Contusion 07/11/2013 Low back pain 06/20/2013 Overview (12/13/2014): Varicose vein 12/01/2011 Lumbar disc disease 11/02/2010 Chronic low back pain 11/02/2010 Overview (12/13/2014): Resolved Problems Problem Noted Date Diagnosed Date Resolved Date Encounter for routine screen ing for malformation using ultrasonics 02/19/2015 5 Encounter for nuchal translucency testing 12/24/2014 01/21/2015 Encounter for screening 12/17/2014 01/21/2015 Encounter for supervision of other normal , first trimester 12/17/2014 01/21/2015 UTI (urinary tract infection) 11/02/2010 07/07/2013 Screening for cervical cancer 05/27/2008 11/02/2010 Overview (06/29/2010): 12/09/2008 wnl Dysfunctional uterine bleeding 05/27/2008 11/02/2010 Routine medical exam 011 Immunizations Immunization Administration Dates Next Due DTaP VACCINE IM (6wk-6yrs) 05/06/2008 Human Papilloma Virus Vaccine 07/24/2007, 008,01/18/2007 INFLUENZA VACCINE 10/06/2013 TD VACCINE 02/06/2008 TDAP (7yrs+) 05/28/2015 Family History Medical History Relation Name Comments Stroke Maternal Grandfather Cancer Maternal Grandmother Cancer Mother Relation Name Status Comments Brother Alive Father Alive Maternal Grandfather Maternal Grandmother Mother Alive Sister Alive Social History Tobacco Use Types Packs/Day Years Used Date Smoking Tobacco: Never Smokeless Tobacco: Never Tobacco Cessation:Counseling Given: No Alcohol Use Standard Drinks/Week Comments Yes 0 (1 standard drink = 0.6 oz pur e alcohol) Comments No Sex and Gender Information Value Date Recorded Sex Assigned at Not on file Legal Sex Female 8:52 AM CLEANING TECHNICIAN Gender Identity Not on file Sexual Orientation Not on file 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 Not on file Not on file Last Filed Vital Signs Vital Sign Reading Time Taken Comments Blood Pressure 118/76 01/21/2015 11:06 AM CLEANING TECHNICIAN Pulse 76 04/27/2014 3:39 PM CDT Temperature 36.2 C (97.2 F) 06/30/2013 11:45 AM CDT Respiratory Rate 16 04/21/2014 11:35 AM CDT Oxygen Saturation 97% 04/21/2014 11:35 AM CDT Inhaled Oxygen Concentration - - Weight 100.7 kg (222 lb) 01/21/2015 11:06 AM CLEANING TECHNICIAN Height 175.3 cm (5' 9) 12/24/2014 11:54 AM CLEANING TECHNICIAN Body Mass Index 32.78 12/24/2014 11:54 AM CLEANING TECHNICIAN Plan of Treatment Health Maintenance Due Date Last Done Comments MAMMOGRAM 1983 HEPATITIS C SCREENING 03/03/2001 HEPATITIS B VACCINE (1 of 3 - 19+ 3-dose series) 2002 LIPID TESTING 04/28/2019 04/27/2014, 12/01/2011 COVID-19 VACCINE (2023-2 5 season) 2023 DEPRESSION SCREENING 02/06/2024 INFLUENZA VACCINE (#1) 2024 10/06/2013 DTAP/TDAP/TD VACCINES (4 - T d or Tdap) 05/27/2025 05/28/2015, 05/06/2008, 02/06/2008 ZOSTER VACCINE (1 of 2) 2033 HPV VACCINE Completed 07/24/2007, 03/20/2007, 01/18/2007 HIV SCREENING Completed 11/06/2014 HIB VACCINE Aged Out No longer eligi ble based on patient's age to complete this topic MENINGOCOCCAL (Group B) VACCINE SHARED DECISION-MAKING Aged Out No longer eligible based on patient's age to complete this topic MENINGOCOCCAL GROUPS A/C/Y/W VACCINE Aged Out No longer eligible b ased on patient's age to complete this topic PNEUMOCOCCAL VACCINE Aged Out No long er eligible based on patient's age to complete this topic Procedures Procedure Name Priority Date/Time Associated Diagnosis Comments HIV-1 HIV-2 ANTIBODY Routine 11/06/2014 1:53 PM CDT examination or test, positive result Encounter for supervision of normal first in first trimester 5 weeks gestation of LIPID PROFILE REFLEX LDL DIRECT Routine 04/27/2014 4:28 PM CDT Routine general medical examination at a health care facility from Last 3 Months or Most Recently Relevant to Health Maintenance Results * HIV-1 HIV-2 ANTIBODY (11/06/2014 1:53 PM CDT) HIV-1 Antibody O.D. Ratio <1.00 <1.00 [facility] ACCOUNT BILL Comment:Index Value: Specime n reactivity relative to the negative cutoff. HIV-1/HIV-2 Non Reactive Non Reactive [facility] ACCOUNT BILL Blood specimen (specimen) BLOOD SPECIMEN / Unknown 11/06/2014 1:53 PM CDT 11/06/2014 4:06 PM CDT Narrative Resulting Agency Comment [facility] [address] [facility] [phone] [place] Romario Mancuso MD LAB - CHEMISTRY ORDERABLES Final Result [facility] ACCOUNT BILL [address] [place] [address] * LIPID PROFILE REFLEX LDL DIRECT (PO REF LAB) (04/27/2014 4:28 PM CDT) Cholesterol 188 100 - 199 mg/dL [facility] ACCOUNT BILL Triglycerides 67 0 - 149 mg/dL [facility] ACCOUNT BILL HDL Cholesterol 85 >39 mg/dL [facility] ACCOUNT BILL Comment: According to ATP-III Guidelines, HDL-C >59 mg/dL is considered a negative risk factor for CHD. VLDL Calculated 13 5 - 40 mg/dL [facility] ACCOUNT BILL LDL Calculated 90 0 - 99 mg/dL [facility] ACCOUNT BILL Comment NOT NEEDED [facility] ACCOUNT BILL Comment:Ancillary determined the test is not needed Cholesterol/HDL Ratio 2.2 0.0 - 4.4 ratio units [facility] ACCOUNT BILL Comment: T. Chol/HDL Ratio Men Women 1/2 Avg.Risk 3.4 3.3 Avg.Risk 5.0 4.4 2X Avg.Risk 9.6 7.1 3X Avg.Risk 23.4 11.0 LDL/HDL Ratio 1.1 0.0 - 3.2 ratio units [facility] ACCOUNT BILL Comment: LDL/HDL Ratio Men Women 1/2 Avg.Risk 1.0 1.5 Avg.Risk 3.6 3.2 2X Avg.Risk 6.2 5.0 3X Avg.Risk 8.0 6.1 BLOOD SPECIMEN / Unknown 04/27/2014 4:28 PM CDT 04/27/2014 6:16 PM CDT Narrative Resulting Agency Comment [facility] [address] [facility] [phone] Ethan Mays DO LAB - CHEMISTRY ORDERABLES Fin al Result [facility] ACCOUNT BILL [address] [place] [address] from Last 3 Months or Most Recently Relevant to Health [place] [address] [employer] Advance Directives * FULL RESUSCITATION (Latest Code Status on File) Date Activated Date Inactivated Comments 07/02/2012 2:25 PM 07/03/2012 2:26 PM Care Teams Snowsport Instructor Relationship Specialty [place] [address] [id number] Anesthesiology-Pain Management 06/24/13
--- OUTSIDE RECORDS SUMMARY | 2024-10-09 12:20 | XMS_ITS | Encounter Summary ---
Author Organization [facility] Health Address [address] [facility] [place] [address] Care Team Providers Care Cold Type Artist Name Role Phone Donald Louis MD Unavailable [phone] Encounter Details Date Type Department Care Team (Late st Contact Info) Description 06/16/2015 Therapy Visit [facility] REHAB [address] [place] [address] Document, Scanned Social History Tobacco Use Types Packs/Day Years Used Date Smoking Tobacco: Never Smokeless Tobacco: Never Alcohol Use Standard Drinks/Week Comments Yes 0 (1 standard drink = 0.6 oz pur e alcohol) Comments Yes Sex and Gender Information Value Date Recorded Sex Assigned at Not on file Legal Sex Female 8:52 AM OIL RECOVERY OPERATOR Gender Identity Not on file Sexual Orientation Not on file 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
--- OUTSIDE RECORDS SUMMARY | 2024-10-09 12:20 | XMS_ITS | Clinical Summary ---
Author Organization [facility] [address] Address [address] [place] [address] Care Team Providers Care Smoke And Flame Specialist Name Role Phone Tracy Loera Estelle LEGISLATIVE ANALYST Primary Care Provider + Allergies No known active allergies Medications Saxenda 3 mg/0.5 mL (18 mg/3 mL) pen injector INJECT 3.0 MG SUBCUTANEOUSLY ONCE DAILY 02/12/19 24 Active TRUEplus Pen Needle 31 gauge x 1/4 needle 04/17/19 24 Active ondansetron (ZOFRAN) 4 mg tabletIndicatio ns:Chronic migraine with aura without status migrainosus, not intractable Take 1 tablet (4 mg total) by mouth every 8 (eight) hours as needed for nausea or vomiting 20 tablet 1 12/31/19 24 Active rimegepant (NURTEC ODT) tablet,disinteg ratingIndicatio ns:Chronic migraine with aura without status migrainosus, not intractable Take 1 tablet (75 mg total) by mouth as needed (migraine) Max dose in 24 hours is 75 mg. 15 tablet 1 12/31/19 24 Active rizatriptan (MAXALT) 10 mg tabletIndicatio ns:Migraine Take 1 tablet (10 mg total) by mouth once as needed for migraine May repeat in 2 hours if unresolved. Do not exceed 30 mg in 24 hours. 12 tablet 1 12/31/19 24 025 Active Active Problems Problem Noted Date Diagnosed Date Chronic migraine with aura w ithout status migrainosus, not intractable 12/31/2023 Assessment & Plan (12/31/2023 11:27 AM ELECTRICAL MAINTENANCE TECHNICIAN): Diagnosis of migraines years ago, however, became more frequent this fall. In Oct, she had a migraine more than 50% of the days. Has tried sumatriptan - ineffective. She has been using sudafed and excedrin migraine which is helpful but does not always abort the CEBALLOS. Recommended trial of nurtec 75 mg prn. Can still use excedrin and sudafed as needed. Will also try different triptan - sent rizatriptan to pharmacy. Ok to take with nurtec. Zofran prn for nausea. Follow up in for prevention visit, will reassess migraine frequency / severity at that time, may want to add prophylactic agent or refer to neuro/ migraine clinic. Encounter for preventative adult health care exdee dee llamasation 04/30/2023 Assessment & Plan (04/30/2023 9:49 AM CDT): Wellness Plan: - Age-appropriate anticipatory guidance and counseling was reviewed. - Reviewed health screenings and is up to date, encourage healthy habits. Health Maintenance Topic Date Due Cervical Cancer Screening Never done Breast Cancer Screening-Mammogram Never done Varicella Vaccines (1 of 2 - 13+ 2-dose series) Never done Depression Screening-PHQ 04/29/2024 Regular Well Visit/Exam 18-64 04/29/2024 DTaP/Tdap/Td Vaccine (3 - Td or Tdap) 05/27/2025 Influenza Vaccine Completed Pneumococcal vaccine <65 Aged Out Pap is up to date. Plans to schedule mammogram in the next few weeks. Varicose veins of bilateral lower extremities wi th pain 12/03/2019 Overview (12/03/2019): Added automatically from request for surgery [id number] Chronic low back pain 11/02/2010 Overview (04/30/2023): Lumbar disc disease 11/02/2010 Immunizations Immunization Administration Dates Next Due DTaP 05/06/2008 HPV, Unspecified 07/24/2007,03/20/2007, 7 Influenza, Quadrivalent, Spl it, Preservative Free, Intramuscular 12/08/2022 Influenza, Unspecified 10/06/2013 Td, Unspecified 02/06/2008 Tdap 05/28/2015 Surgical History Surgery Date Site/Laterality Comments APPENDECTOMY 02/06/2012 - 02/04/2013 KNEE ARTHROSCOPY 02/05/2018 - 02/04/2019 Right ANKLE SURGERY 02/05/1997 - 02/04/1998 Medical History Medical History Date Comments Varicose veins of both lower extremities Toenail fungus Family History Medical History Relation Name Comments Arrhythmia Father Atrial fibrillation Father Hypertension Mother Anesthesia problems Neg Hx Relation Name Status Comments Father Alive Mother Alive Social History Tobacco Use Types Packs/Day Years Used Date Smoking Tobacco: Never Smokeless Tobacco: Never Alcohol Use Standard Drinks/Week Comments Never 0 (1 standard drink = 0.6 oz pur e alcohol) AUDIT-C Answer Date Recorded Q1: How often do you have a drink containing alc ohol? Never 04/30/2023 Average Number of Drinks Not on file 024 Frequency of Binge Drinking Not on file 04/06 PHQ-2 Answer Date Recorded PHQ-2 Total Score (If total score is 3 or more points, staff should administer the PHQ-9) 0 04/30/2023 PHQ-9 Answer Date Recorded PHQ-9 Total Score 0 04/30/2023 Comments No Sex and Gender Information Value Date Recorded Sex Assigned at Not on file Legal Sex Female 3:24 PM CDT Gender Identity Not on file Sexual Orientation Choose not to disclose 2019 11:32 AM CDT Obstetrics History Last Filed Vital Signs Vital Sign Reading Time Taken Comments Blood Pressure 104/66 04/30/2023 9:25 AM CDT Pulse 65 04/30/2023 9:25 AM CDT Temperature 36.8 C (98.2 F) 04/30/2023 9:25 AM CDT Respiratory Rate 17 12/15/2019 12:25 PM ELECTRICAL MAINTENANCE TECHNICIAN Oxygen Saturation 100% 04/30/2023 9:25 AM CDT Inhaled Oxygen Concentration - - Weight 89.8 kg (198 lb) 04/30/2023 9:25 AM CDT Height 175.3 cm (5' 9) 04/30/2023 9:25 AM CDT Body Mass Index 29.24 04/30/2023 9:25 AM CDT Plan of Treatment Health Maintenance Due Date Last Done Comments Breast Cancer Screening-Mammogram 1983 Cervical Cancer Screening 1983 Hepatitis C Screening 1983 Varicella Vaccines (1 of 2 - 13+ 2-dose series) 1996 Hepatitis B Screening 2001 Depression Screening 04/29/2024 04/30/2023 Regular Well Visit/Exam 18-64 04/29/2024 04/30/2023 Influenza Vaccine (#1) 2024 3, 10/06/2013 DTaP/Tdap/Td Vaccine (3 - Td or Tdap) 05/27/2025 05/28/2015, 05/06/2008, 02/06/2008 HPV Vaccines Completed 07/24/2007, 03/20/2007, 01/18/2007 Pneumococcal vaccine <65 Aged Out No longer eligible based on patient's age to complete this topic Insurance [facility] Address: [address] [place] [address] Care Teams Smoke And Flame Specialist Relationship Specialty Start Date End Date Tracy Loera NP [address] [place] [address] PCP - General Nurse Practitioner 04/30/23
== END 2024-10-09 11:47 | disposition home or self-care (01) ==
PROVIDERS: Visit Provider Obstetrics & Gynecology
DX: Z12.31 Encounter for screening mammogram for malignant neoplasm of breast (principal); R92.8 Other abnormal and inconclusive findings on diagnostic imaging of breast
CPT/HCPCS: 77063; 77067

== ENCOUNTER 2024-11-03 10:29 | Outpatient (CLI) | payer OTHER, SELFPAY ==
--- NOTE | ~2024-11-03 | MMUS_ITS ---
EXAMINATION: US breast LT limited, MM diagnostic vanessa LT w brice HISTORY: Inconclusive mammogram TECHNIQUE: Additional images of the left breast]] were performed using full field digital mammography. 3-D tomosynthesis were also obtained and synthetic 2- D images were generated. CAD analysis was submitted and interpreted. High- resolution left breast ultrasound was performed.] ] COMPARISON: Mammograms from 10/09/2024, 09/11/2023 BREAST PARENCHYMAL COMPOSITION: The breasts are extremely dense which lowers the sensitivity of mammography. FINDINGS: MAMMOGRAPHIC FINDINGS: Asymmetry in the upper-outer left breast, middle depth, seen in the left ML view. No convincing sonographic correlate. The finding is probably benign. ULTRASOUND: No cystic or solid mass identified in the upper left breast. ]] IMPRESSION/RECOMMENDATION: 1. Probably benign finding in the left breast. A diagnostic left breast mammogram in 6 months is recommended. BI-RADS 3-Probably benign-Short interval follow-up suggested. Reviewed, dictated and finalized at location Q. IMPRESSION/RECOMMENDATION: 1. Probably benign finding in the left breast. A diagnostic left breast mammogr am in 6 months is recommended. BI-RADS 3-Probably benign-Short interval follow-up suggested. IMPRESSION/RECOMMENDATION: 1. Probably benign finding in the left breast. A diagnostic left breast mammogr am in 6 months is recommended. BI-RADS 3-Probably benign-Short interval follow-up suggested.
--- OUTSIDE RECORDS SUMMARY | 2024-11-03 11:05 | XMS_ITS | Encounter Summary ---
Author Organization [facility] Health Address [address] [facility] [place] [address] Care Team Providers Care Insulation Foreman Name Role Phone Donald Louis MD Unavailable Encounter Details Date Type Department Care Team (Late st Contact Info) Description 06/16/2015 Therapy Visit [facility] REH[facility] [address] [place] [address] Document, Scanned Social History Tobacco Use Types Packs/Day Years Used Date Smoking Tobacco: Never Smokeless Tobacco: Never Alcohol Use Standard Drinks/Week Comments Yes 0 (1 standard drink = 0.6 oz pur e alcohol) Comments Yes Sex and Gender Information Value Date Recorded Sex Assigned at Not on file Legal Sex Female 8:52 AM GRAIN BROKER Gender Identity Not on file Sexual Orientation Not on file 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
--- OUTSIDE RECORDS SUMMARY | 2024-11-03 11:05 | XMS_ITS | Encounter Summary ---
Author Organization [facility] Health Address [address] [place] [address] Care Team Providers Care Silk Washing Machine Operator Name Role Phone Donald Louis MD Unavailable [phone] Encounter Details Date Type Department Care Team (Late st Contact Info) Description 08/11/2014 Therapy Visit [facility] REHAB [address] [place] [address] Unknown, Provider Social History Tobacco Use Types Packs/Day Years Used Date Smoking Tobacco: Never Smokeless Tobacco: Never Alcohol Use Standard Drinks/Week Comments Yes 0 (1 standard drink = 0.6 oz pur e alcohol) Comments No Sex and Gender Information Value Date Recorded Sex Assigned at Not on file Legal Sex Female 8:52 AM UX DESIGN LEAD Gender Identity Not on file Sexual Orientation Not on file 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
--- OUTSIDE RECORDS SUMMARY | 2024-11-03 11:05 | XMS_ITS | Encounter Summary ---
Author Organization [facility] Health Address [address] [facility] [place] [address] Care Team Providers Care Inspector Canvas Products Name Role Phone Donald Louis MD Unavailable [phone] Encounter Details Date Type Department Care Team (Late st Contact Info) Description 09/28/2014 Therapy Visit [facility] REH[facility] [address] [place] [address] Document, Scanned Social History Tobacco Use Types Packs/Day Years Used Date Smoking Tobacco: Never Smokeless Tobacco: Never Alcohol Use Standard Drinks/Week Comments Yes 0 (1 standard drink = 0.6 oz pur e alcohol) Comments No Sex and Gender Information Value Date Recorded Sex Assigned at Not on file Legal Sex Female 8:52 AM FITNESS SPECIALIST Gender Identity Not on file Sexual Orientation Not on file 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
--- OUTSIDE RECORDS SUMMARY | 2024-11-03 11:05 | XMS_ITS | Clinical Summary ---
Author Organization [facility] [address] Address [address] [place] [address] Care Team Providers Care Service Worker Name Role Phone Tracy Loera Estelle SMOKING PIPE LINER Primary Care Provider + Allergies No known [...] vomiting 20 tablet 1 12/31/19 24 Active rizatriptan (MAXALT) 10 mg tabletIndicatio ns:Migraine Take 1 tablet (10 mg total) by mouth once as needed for migraine May repeat in 2 hours if unresolved. Do not exceed 30 mg in 24 hours. 12 tablet 1 12/31/19 24 025 Active rimegepant (NURTEC ODT) tablet,disinteg ratingIndicatio ns:Chronic migraine with aura without status migrainosus, not intractable Take 1 tablet (75 mg total) by mouth as needed (migraine) Max dose in 24 hours is 75 mg. 15 tablet 1 10/25/19 25 Active rimegepant (NURTEC ODT) tablet,disinteg ratingIndicatio ns:Chronic migraine with aura without status migrainosus, not intractable Take 1 tablet (75 mg total) by mouth as needed (migraine) Max dose in 24 hours is 75 mg. 15 tablet 1 12/31/19 24 025 Discontin ued(Reord er) Active Problems Problem Noted Date Diagnosed Date Chronic migraine with aura w ithout status migrainosus, not intractable 12/31/2023 Assessment & Plan (12/31/2023 11:27 AM SENIOUR INSIGHT MANAGER): Diagnosis of migraines years ago, however, became more frequent this fall. In Nov, she had a migraine more than 50% [...] clinic. Encounter for preventative adult health care exa mination 04/30/2023 Assessment & Plan (04/30/2023 9:49 AM [...] (12/03/2019): Added automatically from request for surgery [id number] Chronic low back pain 11/02/2010 Overview (04/30/2023): Lumbar disc disease 11/02/2010 Encounters Date Type Department Care Team Description 10/24/2024 Telephone [facility] [address] [address] [place] [id number] Tracy Loera NP Prior Auth 10/24/2024 Orders Only [facility] [address] [facility] [address] [place] [address] Tracy Loera NP Chronic migraine with aura without status migrainosus, not intractable 10/15/2024 Telephone [facility] [address] [place] [address] [address] [place] [phone] Karen Sepulveda RN mammogram results 10/09/2024 Orders Only [facility] MED ED Scanning, Provider from Last 3 Months Immunizations Immunization Administration Dates Next Due DTaP [...] CDT Respiratory Rate 17 12/15/2019 12:25 PM SENIOUR INSIGHT MANAGER Oxygen Saturation 100% 04/30/2023 9:25 AM CDT [...] Procedure Name Priority Date/Time Associated Diagnosis Comments SCAN - RADIOLOGY/IMAGING 10/09/2024 from Last 3 Months Results * SCAN - RADIOLOGY/IMAGING (10/09/2024) Anatomical Region Laterality Modality Other us Provider Scanning Final Result from Last 3 Months Insurance Member Subscriber Plan / Payer (Ef fective 2013-Present) Name:Dunia Parsons Member ID:[id number] Relation to Subscriber:Spouse Name:SREEKANTH PARSONS Subscriber ID:[id number] Date of :1981 (Home) Address: [address] [place] [id number] Payer ID:[id number] Type:[employer] HMO/PPO Address: [address] HMO Care Teams Service Worker Relationship Specialty Start Date End Date Tracy Loera NP [address] [address] PCP - General Nurse Practitioner 04/30/23
--- OUTSIDE RECORDS SUMMARY | 2024-11-03 11:05 | XMS_ITS | Clinical Summary ---
Author Organization [facility] Address [address] [place] [address] Care Team Providers Care Industrial Maintenance Tech Name Role Phone Donald Louis MD Unavailable [phone] Source Comments [facility],non-owned Affiliates and Associated Physician Practices is amultiple site organization consisting of ambulatory clinics and hospital sitesin [place], [place], [place] and [place]. This disclosure is being madepursuant to the Care Everywhere program and may not contain all information available regarding this patient. 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 Not on file Not on file Last Filed Vital Signs Vital Sign Reading Time Taken Comments Blood Pressure 118/76 01/21/2015 11:06 AM BUFFING WHEEL OPERATOR Pulse 76 04/27/2014 3:39 PM CDT Temperature 36.2 C (97.2 F) 06/30/2013 11:45 AM CDT Respiratory Rate 16 04/21/2014 11:35 AM CDT Oxygen Saturation 97% 04/21/2014 11:35 AM CDT Inhaled Oxygen Concentration - - Weight 100.7 kg (222 lb) 01/21/2015 11:06 AM BUFFING WHEEL OPERATOR Height 175.3 cm (5' 9) 12/24/2014 11:54 AM BUFFING WHEEL OPERATOR Body Mass Index 32.78 12/24/2014 11:54 AM BUFFING WHEEL OPERATOR Plan of Treatment Health Maintenance Due Date Last Done Comments MAMMOGRAM 1983 HEPATITIS C SCREENING 03/03/2001 HEPATITIS B VACCINE (1 of 3 - 19+ 3-dose series) 2002 LIPID TESTING 04/28/2019 04/27/2014, 12/01/2011 DEPRESSION SCREENING 02/06/2024 COVID-19 VACCINE ( - 2024-2 5 season) 2024 INFLUENZA VACCINE (#1) 2024 10/06/2013 DTAP/TDAP/TD VACCINES [...] PM CDT Narrative Resulting Agency Comment [facility] [address] [facility] [phone] us Romaroi Mancuso MD LAB - CHEMISTRY ORDERABLES Final Result [facility] ACCOUNT BILL [address] [place] [address] * LIPID PROFILE REFLEX LDL DIRECT (PO [...] PM CDT Narrative Resulting Agency Comment [facility] [address] [facility] [phone] Ethan Mays DO LAB - CHEMISTRY ORDERABLES Fin al Result [facility] ACCOUNT BILL [address] [place] [address] from Last 3 Months or Most Recently Relevant to Health [place] [address] [employer] Advance Directives * FULL RESUSCITATION (Latest Code Status on File) Date Activated Date Inactivated Comments 07/02/2012 2:25 PM 07/03/2012 2:26 PM Care Teams Industrial Maintenance Tech Relationship Specialty [place] [address] [id number] Anesthesiology-Pain Management 06/24/13
--- OUTSIDE RECORDS SUMMARY | 2024-11-03 11:06 | XMS_ITS | Encounter Summary ---
Author Organization [facility] Address [address] [place] [address] Care Team Providers Care Stna Name Role Phone Donald Louis MD Unavailable [phone] Encounter Details Date Type Department Care Team (Late st Contact Info) Description 07/17/2013 [facility] Outpatient Visit [facility] Orthopedics - Radiology [address] [place] [address] Timothy Trujillo, DO [address] [place] [phone] Social History Tobacco Use Types Packs/Day Years Used Date Smoking Tobacco: Never Smokeless Tobacco: Never Alcohol Use Standard Drinks/Week Comments Yes 0 (1 standard drink = 0.6 oz pur e alcohol) Comments No Sex and Gender Information Value Date Recorded Sex Assigned at Not on file Legal 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
== END 2024-11-03 10:30 | disposition home or self-care (01) ==
LOC: CHSIMG 10:29
PROVIDERS: Visit Provider Obstetrics & Gynecology
DX: R92.8 Other abnormal and inconclusive findings on diagnostic imaging of breast (principal)
CPT/HCPCS: 76642; 77061; 77065; G0279